=== PATIENT | male | born 1955 | race Caucasian/White ===

== ENCOUNTER 2022-07-27 08:07 | Emergency (ER) | payer MEDICARE ==
[~2022-07-27] VITALS: Ht 175.3 cm; Wt 104.3 kg
[2022-07-27] MEDS ORDERED: COLCHICINE0.6 MG PO (08:37)
== END 2022-07-27 09:16 | disposition home or self-care (01) ==
LOC: ER 08:07
DX: M10.9 Gout, unspecified (principal); E11.9 Type 2 diabetes mellitus without complications; Z91.041 Radiographic dye allergy status; Z79.899 Other long term (current) drug therapy
CPT/HCPCS: A9270